=== PATIENT | female | born 1985 | race Caucasian/White ===

== ENCOUNTER 2025-06-16 08:39 | Emergency (ER) | payer OTHER, SELFPAY ==
[2025-06-16 08:58] VITALS: BP 172/117; PULSE 94; RESP 16; TEMP 36.9; O2SAT 99
--- NOTE | 2025-06-16 09:40 | ED_ITS ---
HPI - URI/Sore Throat General Chief Complaint: Upper Respiratory Infection Stated Complaint: Strep Symptoms Time Seen by Provider: 06/16/25 09:35 Source: patient and RN notes reviewed Mode of arrival: ambulatory Limitations: no limitations History of Present Illness HPI Narrative: 40-year-old female patient presents today complaining of sore throat, cough, headache, and postnasal drip since yesterday. She is currently pain-free. She took DayQuil yesterday with some improvement of symptoms. Reports fever with a T-max of 99.4?. No shortness of breath or chest pain. Related Data Allergies Allergy/AdvReac Type Severity Reaction Status Date / Time Sulfa (Sulfonamide Allergy Intermediate Other Verified 06/16/25 08:51 Antibiotics) PMFSH Past Medical History Medical History Cigarette nicotine dependence, uncomplicated Essential (primary) hypertension Family History Family History Father Hypertension Diabetes mellitus Mother Hypertension Social History Social History Smoking packs per day: 1 Smoking cigarettes per day: 20.0 Smoking status: Current every day smoker Tobacco type: cigarettes Alcohol intake: current Drinks per week: 2 Substance use: never Substance use type: does not use Lack of Transportation: No Lack of Food: Never True Current Housing: I Have Housing Concerned About Future Housing: No Difficulty Paying Gas/Electric Bills: No Difficulty Paying for Meds: No Currently Unemployed: No Education: Associate Degree Difficulty w/ Childcare or Family Care: No Living arrangements: with family Occupation/Education: occupation Gender identity (if verbalized by the patient): Female Sexual Orientation (if Verbalized by the Patient): Straight or Heterosexual Spiritual care concerns: No Comments At time of signature, I have reviewed and agree with nursing past medical, surgical, social and family history unless otherwise noted. Please see nursing chart for further information. There is no relevant family history pertinent to the presenting complaint Exam Narrative: GENERAL: Mildly ill-appearing, well-nourished, and in no acute distress. HEAD: Normocephalic, atraumatic. EYES: EOMI. No redness or drainage. Conjunctivae normal. ENT: Mucous membranes pink and moist. Nares clear. No rhinorrhea. TMs normal bilaterally. Throat mildly erythematous without edema or exudate. Uvula midline. NECK: Normal AROM. Supple. No lymphadenopathy. CHEST: No respiratory distress. Clear to auscultation. HEART: Regular rate and rhythm. No murmur appreciated. EXTREMITIES: Normal range of motion. No edema. SKIN: Warm, dry, no rash. Capillary refill normal. Normal skin turgor. NEURO: No focal deficits. Alert and oriented x3. Gait steady. PSYCH: Normal affect. No signs of depression or anxiety. Course Course Level of Care: Express Care Visit Vital Signs Vital signs: Vital Signs Temperature 98.5 F 06/16/25 08:58 Pulse Rate 94 06/16/25 08:58 Respiratory Rate 16 06/16/25 08:58 Blood Pressure 172/117 H 06/16/25 08:58 Pulse Oximetry 99 06/16/25 08:58 Temperature 98.5 F 06/16/25 08:58 Pulse Rate 94 06/16/25 08:58 Respiratory Rate 16 06/16/25 08:58 Blood Pressure 172/117 H 06/16/25 08:58 Pulse Oximetry 99 06/16/25 08:58 Reviewed. Patient has not taken her hypertension medication today MDM [facility] Narrative Medical decision making narrative: 40-year-old female patient presents today complaining of sore throat, cough, headache, and postnasal drip since yesterday. She is currently pain-free. She took DayQuil yesterday with some improvement of symptoms. Reports fever with a T-max of 99.4?. No shortness of breath or chest pain. Upon exam, patient has a mildly erythematous throat without edema or exudate and is mildly ill appearing. Rapid strep negative. Culture pending. Patient declines testing for influenza or COVID-19. Symptoms likely viral in etiology. Discussed [id number] medication use and duration of illness. No prescription medications indicated at this time. Anticipatory guidance given. Patient's blood pressure is quite elevated this morning, however, she has not yet taken her hypertension medications this morning. Reminded to take when she arrived back home this morning. Patient agrees. Agrees with plan. Anticipatory guidance given. Differential Diagnosis Differential Diagnosis: Strep throat, pharyngitis, URI, influenza, COVID-19. Lab Data [facility] Lab Attestation statement: I personally reviewed the patient's lab results. Lab results narrative: Rapid strep Critical Care Time Critical Care Time Critical Care Time: No Discharge Plan Discharge Clinical Impression: Upper respiratory infection Qualifiers: URI type: unspecified URI Qualified Code(s): J06.9 - Acute upper respiratory infection, unspecified Patient Disposition: Home Condition: Stable Instructions: Upper Respiratory Infection (DC) Additional Instructions: Your rapid strep swab was negative today at [facility]. You will be notified in a few days if the culture comes back positive for strep, and appropriate antibiotics will be called in for you at that time. Your symptoms are likely due to a viral illness, which is not treated with antibiotics. Viral symptoms can be present for up to 7-10 days. Take tylenol for fever or pain. Rest and stay hydrated. Follow up with your PCP in 7 days if symptoms are not improving. Go to the ER immediately if you have any difficulty breathing or swallowing. Patient Language: Citizen [place] Prescriptions: No Action lisinopril 20 mg tablet 20 mg PO DAILY Qty: 90 1RF spironolactone 25 mg tablet 25 mg PO DAILY Qty: 90 1RF Follow-up/Referrals: Luis Enrique Alfonso MD [Primary Care Provider, [facility]] Time of Disposition: 09:45
[2025-06-16 10:02] LABS: EDSTREPNEGPOS1 Negative (Negative)
== END 2025-06-16 09:55 | disposition home or self-care (01) ==
PROVIDERS: Emergency Provider Nurse Practitioner; PCP Family Medicine
DX: J06.9 Acute upper respiratory infection, unspecified (principal); F17.210 Nicotine dependence, cigarettes, uncomplicated; I10 Essential (primary) hypertension
CPT/HCPCS: 87081; 87880; 99213; G0463